=== PATIENT | male | born 2000 | race American Indian/Alaskan Native ===

== ENCOUNTER 2021-03-23 09:19 | Emergency (ER) | payer SELFPAY ==
[2021-03-23 10:22] VITALS: BP 124/75
--- NOTE | 2021-03-23 13:04 | Emergency Department Report ---
ED ENT HPI - General Chief complaint: Earache Stated complaint: EAR INFECTION Time Seen by Provider: 03/23/21 12:04 Source: patient Mode of arrival: Ambulatory Limitations: No Limitations - History of Present Illness Initial comments: 20-year-old male presents to the ER today with complaints of right ear pain and sore throat. Patient states that symptoms are about a couple days ago. He states that he started to the right side of his neck and since then has spread up to involve his right ear and also some pain to the anterior aspect of his right neck. He reports some mild pain with swallowing but otherwise denies any swelling to the throat or trismus or drooling. He denies any drainage or bleeding from the ear. He denies any rhinorrhea or nasal congestion. He states that he has been having some mild chills but otherwise denies any fever. He does admit that he went swimming last week. He reports no other symptoms at this time. MD complaint: sore throat, ear pain -: days(s) (2) - Related Data Previous Rx's Medication Instructions Recorded Last Taken Type Amoxicillin/Potassium Clav 1 each PO BID #14 tablet 03/23/21 Unknown Rx [Augmentin 875-125 Tablet] Ibuprofen [Motrin] 600 mg PO Q8H PRN #30 tablet 03/23/21 Unknown Rx Neomy/Polymyx B/Hc (Otic) Soln 4 drops RTEAR TID 7 Days #1 bottle 03/23/21 Unknown Rx [Cortisporin (Otic) Soln] Allergies Allergy/AdvReac Type Severity Reaction Status Date / Time No Known Allergies Allergy Unverified 03/23/21 10:23 ED Dental HPI - General Chief complaint: Earache Stated complaint: EAR INFECTION Time Seen by Provider: 03/23/21 12:04 Source: patient Mode of arrival: Ambulatory Limitations: No Limitations - Related Data Previous Rx's Medication Instructions Recorded Last Taken Type Amoxicillin/Potassium Clav 1 each PO BID #14 tablet 03/23/21 Unknown Rx [Augmentin 875-125 Tablet] Ibuprofen [Motrin] 600 mg PO Q8H PRN #30 tablet 03/23/21 Unknown Rx Neomy/Polymyx B/Hc (Otic) Soln 4 drops RTEAR TID 7 Days #1 bottle 03/23/21 Unknown Rx [Cortisporin (Otic) Soln] Allergies Allergy/AdvReac Type Severity Reaction Status Date / Time No Known Allergies Allergy Unverified 03/23/21 10:23 ED Review of Systems ROS: Stated complaint: EAR INFECTION Other details as noted in HPI ED Past Medical Hx - Past Medical History Previous Medical History?: No - Surgical History Past Surgical History?: No - Medications Home Medications: Home Medications Medication Instructions Recorded Confirmed Last Taken Type Amoxicillin/Potassium Clav 1 each PO BID #14 tablet 03/23/21 Unknown Rx [Augmentin 875-125 Tablet] Ibuprofen [Motrin] 600 mg PO Q8H PRN #30 tablet 03/23/21 Unknown Rx Neomy/Polymyx B/Hc (Otic) Soln 4 drops RTEAR TID 7 Days #1 bottle 03/23/21 Unknown Rx [Cortisporin (Otic) Soln] ED Physical Exam - General Limitations: No Limitations ED Course Vital Signs 03/23/21 10:18 Temperature 98.9 F Pulse Rate 62 Respiratory 18 Rate Blood Pressure 124/75 [Left] O2 Sat by Pulse 100 Oximetry ED Medical Decision Making - Medical Decision Making The patient is resting comfortably and is well-appearing and in no acute distress. There is no respiratory distress, no stridor and the mental status is normal. The neurological exam is normal, and there is no significant signs of dehydration. Suspect otitis media with associated otitis externa and pharyngitis at this time. His history, exam, diagnostic testing and the patient current condition does not suggest an infectious process such as meningitis, retropharyngeal abscess, epiglottitis, peritonsillar abscess, Desiree's angina, mastoiditis, orbital cellulitis, periorbital cellulitis, severe meningitis, malignant otitis externa, sepsis or any significant pathology warranting further testing, continued ED treatment, admission, consultation or any other evaluation at this time. Discussed suspected dx and treatment plan with patient. His vital signs have been stable. The patient condition is stable and appropriate for discharge. Critical care attestation.: If time is entered above; I have spent that time in minutes in the direct care of this critically ill patient, excluding procedure time. ED Disposition Clinical Impression: Otitis media, Otitis externa, Pharyngitis Disposition: TO HOME OR SELFCARE Is pt being admited?: No Does the pt Need Aspirin: No Condition: Stable Instructions: Otitis Externa, [id number], Otitis Media, Adult, [id number], Pharyngitis, [id number] Additional Instructions: Take the augmentin as prescribed. Use the antibiotic drops as prescribed. Take the ibuprofen as prescribed. Follow up with PCP in 1 week. REturn to ED if worse. Prescriptions: Amoxicillin/Potassium Clav [Augmentin 875-125 Tablet] 1 each PO BID #14 tablet Neomy/Polymyx B/Hc (Otic) Soln [Cortisporin (Otic) Soln] 4 drops RTEAR TID 7 Days #1 bottle Ibuprofen [Motrin] 600 mg PO Q8H PRN #30 tablet PRN Reason: Pain Referrals: [facility] [Provider Group] - 3-5 Days Time of Disposition: 13:04
== END 2021-03-23 13:19 | disposition home or self-care (01) ==
LOC: ED 09:19
DX: H66.91 Otitis media, unspecified, right ear (principal); H60.91 Unspecified otitis externa, right ear; J02.9 Acute pharyngitis, unspecified
CPT/HCPCS: 99281